=== PATIENT | female | born 1945 | race Caucasian/White ===

== ENCOUNTER → 2016-11-04 | Outpatient (CLI) | payer MEDICARE ==
--- NOTE | 2016-11-05 09:30 | RADIOLOGY REPORT PS360 ---
CT CALCIUM SCORING W/3D CLINICAL INDICATION: CHEST PAIN,HTN,DYSPNEA,ABN EKG, ORDERING PHYSICIAN: Dioni Fan MD PATIENT AGE: 71 years COMPARISON: None FINDINGS: Coronary artery calcium score is 16 indicating a mild plaque burden with moderate cardiovascular disease risk. No images are available for review IMPRESSION: Coronary artery calcium score of 16 with mild plaque burden and moderate cardiovascular disease risk
== END ==
LOC: RAD 13:51
DX: R07.89 Other chest pain (principal); R06.00 Dyspnea, unspecified; I10 Essential (primary) hypertension; E78.5 Hyperlipidemia, unspecified; R94.31 Abnormal electrocardiogram [ECG] [EKG]

== ENCOUNTER → 2016-11-10 | Outpatient (CLI) | payer MEDICARE ==
--- NOTE | 2016-11-10 13:47 | RADIOLOGY REPORT PS360 ---
History and Indications: Hypertension, hyperlipidemia, family history, chest pain, shortness of breath, palpitations and abnormal EKG and fatigue. Procedure: Patient received 0.4 mg of Lexiscan, resting heart rate was 64 beats a minute resting blood pressure 164 with 83, with Lexiscan maximum heart rate achieved was 78 beats per is less than 85% of the maximum predicted heart rate and a blood pressure was 159/65. With Lexiscan patient complained of mild chest pressure and nausea. Electrocardiogram: Resting electrocardiogram showed sinus rhythm, with Lexiscan there is less than 1.5 mm the segment depression noted from the baseline EKG. The EKG portion of the Lexiscan is nondiagnostic. Cardiac stress and resting SPECT images: Cardiac stress and the suspect images were obtained using technetium 99 Myoview 10.4 mCi at rest, and 32.1 mCi at stress, gated SPECT further analysis of segmental wall motion and calculation of the ejection fraction also done. Cardiac stress and the suspect images show mild fixed defect in the anterior wall with normal contractility gated SPECT is likely secondary to soft tissue attenuation, no reversible ischemia seen. Computer derived ejection fraction is over 65% with no obvious regional wall motion abnormality, right ventricle is normal size and contractility. Conclusion: 1. The EKG portion of the Lexiscan is nondiagnostic. 2. No obvious scintigraphic evidence of reversible ischemia seen, computer derived ejection fraction over 65% no obvious regional wall motion abnormality, right ventricle is normal size and contractility. 3. Normal Lexiscan Myoview study.
--- NOTE | 2016-11-10 16:32 | RADIOLOGY REPORT PS360 ---
ECHO ADULT PROCEDURE: INDICATIONS FOR THE TEST: Chest pain + COPD Heart Murmur+ Tobacco Smoking Palpitations Fatigue Syncope Edema Hypertension+Diabetes Mellitus Rheumatic Fever SOB+MOREJON Obesity Hyperlipidemia + Family History HD Additional History PATIENT INFORMATION HEIGHT: 61 WEIGHT:178 GENDER: Female B/P: 2-D/M-MODE INTERPRETATION: 2-D MEASUREMENTS OBSERVED VALUES IN CMS Right Ventricular Dimension (RVDd) 1.9 Interventricular Septum (Thickness)(IVsd) 1.3 Left Ventricular Internal Dimensions(LVIDd) 4.3 Left Ventricular Posterior Wall (Thickness)(LVPWd) 0.8 Aortic Root 2.6 Aortic Cusp Separation 1.8 Left Atrial Dimensions (LAD) 4.1 2D 1. Left atrium is qualitatively mildly enlarged, left ventricle is normal size, there is mild concentric left ventricular hypertrophy present, visually estimated ejection fraction of 55% with no obvious regional wall motion abnormality. 2. The right atrium and right ventricle are normal size and contractility. 3. There is bulging of the intraatrial septum towards right atrium suggestive of raised left atrial pressure. 4. The aortic valve is thickened and calcified leaflet continue to display good mobility. 5. The mitral valve has mitral calcification there is no mitral stenosis. 6. The pulmonic valve is not well visualized. 7. No significant pericardial effusion noted. DOPPLER INTERROGATION: Doppler interrogation of the aortic mitral and tricuspid valvular presence of mild mitral, mild aortic and mild tricuspid regurgitation, tricuspid regurgitant jet velocity insufficient for calculation of the right ventricular systolic pressure, grade 1 diastolic dysfunction seen with tissue Doppler evidence of raised left atrial pressure. CONCLUSION: 1. Moderately enlarged atrium, normal left ventricular size, mild concentric left ventricular hypertrophy, visually estimated ejection fraction 55% with no obvious regional wall motion abnormality. Doppler evidence of grade 1 diastolic dysfunction with raised left atrial pressure, there is bulging of the intra-atrial septum towards the right atrium raising the concern is for presence of raised left atrial pressure. 2. Aortic sclerosis there is associated with mild aortic insufficiency. 3. Mild mitral and tricuspid regurgitation, tricuspid regurgitant jet velocity insufficient for calculation of the right ventricular systolic pressure. 4. No significant pericardial effusion noted.
== END ==
LOC: RAD 06:11
DX: R07.89 Other chest pain (principal); R06.00 Dyspnea, unspecified; R94.31 Abnormal electrocardiogram [ECG] [EKG]; I10 Essential (primary) hypertension; E78.5 Hyperlipidemia, unspecified
CPT/HCPCS: A9502; J2785

== ENCOUNTER → 2017-04-14 | Outpatient (CLI) | payer MEDICARE ==
--- NOTE | 2017-04-14 11:28 | RADIOLOGY REPORT PS360 ---
EXAM: LUMBAR SPINE 5 VIEWS HISTORY: LEFT LUMBAR PAIN ORDERING PHYSICIAN: Will Owens MD PATIENT AGE: 71 years COMPARISON: None FINDINGS: There is mild levoscoliosis of the lumbar spine measuring 18 degrees. Severe degenerative disc disease is present at L2-L3 and L5-S1 with moderate degenerative disc disease at L1-L2 L3-L4 and L4-L5. There is 7 mm anterolisthesis of L4 on L5. Facet arthritic changes are present from L1 to S1. Prominent endplate osteophytes are present at L2-L3 with foraminal narrowing at least on the right at that level. No fracture or dislocation is evident. There is mild wedging of L2 anteriorly which is probably chronic IMPRESSION: Lumbar scoliosis convex left with moderate to severe lumbar spondylosis with degenerative disc disease and facet arthritic change as described above.
== END ==
LOC: RAD 10:53
DX: M54.5 Low back pain (principal)